=== PATIENT | male | born 1995 | race Caucasian/White ===

== ENCOUNTER 2019-09-14 10:26 | Emergency (ER) | payer OTHER ==
[2019-09-14 10:31] VITALS: BP 113/93; PULSE 67; RESP 18; TEMP 98.7
--- NOTE | 2019-09-14 10:45 | ED ---
Burn/Smoke HPI - General Chief complaint: Burn/Smoke Inhalation Stated complaint: [facility]-chemical burn Time Seen by Provider: 09/14/19 10:34 Source: patient Mode of arrival: ambulatory Limitations: no limitations - History of Present Illness Initial comments: Patient is a 23-year-old male presenting to the emergency department with a chief complaint of chemical exposure. 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 States he was not using any protective department when some splashed on bilateral forearms, mostly on the left forearm. Also reports similar going to his left eye. Denies any inhalation or ingestion of the chemical. She states he immediately washed his eye as well as the affected forearms. Denies any visual changes or pain. Denies any eye discomfort or pain with extraocular movements. States the burn on his hand is between a 1 and 2 on a scale of 10. - Related Data Allergies Allergy/AdvReac Type Severity Reaction Status Date / Time No Known Allergies Allergy Verified 09/14/19 10:31 Review of Systems ROS Statement: Those systems with pertinent positive or pertinent negative responses have been documented in the HPI. ROS Other: All systems not noted in ROS Statement are negative. Past Medical History Past Medical History: No Reported History History of Any Multi-Drug Resistant Organisms: None Reported Past Surgical History: No Surgical Hx Reported Past Psychological History: No Psychological Hx Reported Smoking Status: Never smoker Past Alcohol Use History: None Reported Past Drug Use History: None Reported General Exam Limitations: no limitations General appearance: alert, in no apparent distress Head exam: Present: atraumatic, normocephalic, normal inspection Eye exam: Present: normal appearance, PERRL, EOMI. Absent: other (with extraocular movements. Fluorescein stain reveals no uptake.) Pupils: Present: normal accommodation ENT exam: Present: normal exam, normal oropharynx, mucous membranes moist Neck exam: Present: normal inspection, full ROM Respiratory exam: Present: normal lung sounds bilaterally Cardiovascular Exam: Present: regular rate, normal rhythm, normal heart sounds Extremities exam: Present: full ROM, normal capillary refill, other (+2 ulnar and radial pulses bilaterally.). Absent: normal inspection (Less then 1 percent of total surface area burn on the left forearm. Only mild region measuring approximately 2 cm diameter on the right forearm. His appears to be a first- degree burn. Does not go across flexor or extensor surfaces.) Back exam: Present: normal inspection, full ROM Neurological exam: Present: alert, oriented X3 Psychiatric exam: Present: normal affect, normal mood Skin exam: Present: warm, dry, intact, normal color Course Vital Signs 09/14/19 10:27 Temperature 98.7 F Pulse Rate 67 Respiratory 18 Rate Blood Pressure 113/93 O2 Sat by Pulse 97 Oximetry Medical Decision Making - Medical Decision Making Patient is a 23-year-old male presenting to emergency Department for chief complaint of a chemical burn. Chin was pumping performance consultant/soap into the finger tender when some of it splashed on his hands and in his left eye. Patient extensively washed both the eye and his forearms. States the pain on his skin is about 1-2. On exam this appears to be less than 1% total body surface area. This appears to be first-degree superficial burn. Fluorescein stain of bilateral eyes reveals no uptake or signs of ocular injury. Patient was to follow up with primary care. Return parameters thoroughly discussed with physi jeffrey is in standing and agreeable. Case discussed with physician. Disposition Clinical Impression: Chemical burn Disposition: HOME SELF-CARE Condition: Stable Instructions (If sedation given, give patient instructions): Chemical Skin Burn (ED) Additional Instructions: Follow-up with her primary care. Return to emergency department if symptoms worsen. Is patient prescribed a controlled substance at d/c from ED?: No Referrals: None,Stated [Primary Care Provider] - 1-2 days Time of Disposition: 11:33
[2019-09-14] MEDS ORDERED: PROPARACAINE 0.5% OPHTH DROPS 15 ML BTL RIGHT EYE STA (10:49)
[2019-09-14] MEDS: FLUORESCEIN STRIPS 1 MG STRIP BOTH EYES ONE ×2 (11:18→11:19)
== END 2019-09-14 11:54 | disposition home or self-care (01) ==
LOC: EC 10:26
DX: T22.512A Corrosion of first degree of left forearm, initial encounter (principal); T22.511A Corrosion of first degree of right forearm, initial encounter; T26.92XA Corrosion of left eye and adnexa, part unspecified, initial encounter; T55 Toxic effect of soaps and detergents; T32.0 Corrosions involving less than 10% of body surface; Y92.69 Other specified industrial and construction area as the place of occurrence of the external cause; Y99.0 Civilian activity done for income or pay
CPT/HCPCS: 99283

== ENCOUNTER → 2019-10-27 | Outpatient (CLI) | payer MEDICAID | END | disposition home or self-care (01) | LOC: LABWHC1 08:18 | PROVIDERS: ATTEND Pediatrics Pediatric Infectious Diseases | DX: Z11.59 Encounter for screening for other viral diseases (principal) ==

== ENCOUNTER → 2019-10-30 | Outpatient (CLI) | payer MEDICAID | END | disposition home or self-care (01) | LOC: LABWHC1 08:25 | PROVIDERS: ATTEND Pediatrics Pediatric Infectious Diseases | DX: Z53.9 Procedure and treatment not carried out, unspecified reason (principal) ==

== ENCOUNTER 2021-03-28 16:18 | Emergency (ER) | payer OTHER ==
[2021-03-28 17:17] VITALS: BP 142/87; PULSE 96; RESP 20; TEMP 98.5
--- NOTE | 2021-03-28 18:10 | XR ---
EXAMINATION TYPE: XR shoulder complete RT DATE OF EXAM: 03/28/2021 COMPARISON: NONE HISTORY: Fall. Pain TECHNIQUE: 3 views FINDINGS: The glenohumeral joint is intact. I see no fracture nor dislocation. AC joint is intact. IMPRESSION: Negative right shoulder exam. No fracture.
--- NOTE | 2021-03-28 19:12 | XR ---
EXAMINATION TYPE: XR elbow complete RT DATE OF EXAM: 03/28/2021 COMPARISON: NONE HISTORY: Pain TECHNIQUE: 3 views FINDINGS: I see no fracture nor dislocation. Joint spaces are normal. There is no sign of elbow joint effusion. IMPRESSION: Negative right elbow exam. No fracture.
--- NOTE | 2021-03-28 19:24 | ED ---
General Adult HPI - General Chief complaint: Extremity Injury, Upper Stated complaint: shoulder pain Time Seen by Provider: 03/28/21 18:47 Source: patient Mode of arrival: ambulatory Limitations: no limitations - History of Present Illness Initial comments: 25-year-old male patient presents to the emergency department for evaluation of right shoulder and right elbow pain after soap and fall accident 3 days ago. Patient states he has been having pain to the arm since landing on it during the fall. States he felt like he had his funny bone in his elbow and he keeps feeling that same sensation with certain movements. He states his shoulder feels stiff and painful. Denies difficulty with range of motion. Denies numbness or tingling to the hand or fingers. Denies taking any medication for his pain. Denies hitting his head or losing consciousness during the fall. Denies any neck or back pain. Denies any other injuries. - Related Data Previous Rx's Medication Instructions Recorded Ibuprofen [Motrin] 600 mg PO Q8HR PRN #30 tab 03/28/21 Allergies Allergy/AdvReac Type Severity Reaction Status Date / Time No Known Allergies Allergy Verified 03/28/21 17:15 Review of Systems ROS Statement: Those systems with pertinent positive or pertinent negative responses have been documented in the HPI. ROS Other: All systems not noted in ROS Statement are negative. Past Medical History Past Medical History: No Reported History History of Any Multi-Drug Resistant Organisms: None Reported Past Surgical History: No Surgical Hx Reported Past Psychological History: No Psychological Hx Reported Smoking Status: Current some day smoker Past Alcohol Use History: None Reported Past Drug Use History: None Reported General Exam Limitations: no limitations General appearance: alert, in no apparent distress, other (This is a well- developed, well-nourished adult male patient in no acute distress.) Neck exam: Present: normal inspection, full ROM. Absent: tenderness, meningismus, lymphadenopathy Respiratory exam: Present: normal lung sounds bilaterally. Absent: respiratory distress, wheezes, rales, rhonchi, stridor Cardiovascular Exam: Present: regular rate, normal rhythm, normal heart sounds. Absent: systolic murmur, diastolic murmur, rubs, gallop, clicks Extremities exam: Present: full ROM, normal capillary refill, other (Skin to the right arm is pink, warm, dry. Cap refill less than 3 seconds. Full range of motion noted to the right shoulder and right elbow. Radial, ulnar, median nerve is intact.). Absent: tenderness, pedal edema, joint swelling, calf tenderness Back exam: Present: normal inspection. Absent: vertebral tenderness Neurological exam: Present: alert, oriented X3, CN II-XII intact Psychiatric exam: Present: normal affect, normal mood Skin exam: Present: warm, dry, intact, normal color. Absent: rash Course Vital Signs 03/28/21 17:15 Temperature 98.5 F Pulse Rate 96 Respiratory 20 Rate Blood Pressure 142/87 O2 Sat by Pulse 97 Oximetry Medical Decision Making - Medical Decision Making 25-year-old male patient presents to the emergency department today for evaluation of right elbow and right shoulder pain after a fall 3 days ago. Physical examination was unremarkable. Exhibited full range of motion and good neurovascular status. X-rays of the right elbow and right shoulder were obtained and were negative. He is given prescription for ibuprofen. Instructed to follow-up with the primary care physician for recheck as soon as possible. Instructed to follow-up with orthopedics of his symptoms are not improved after 1 week. Return parameters were discussed in detail. He verbalizes understanding and agrees with this plan. My attending is Dr. Griffin. - Radiology Data Radiology results: report reviewed, image reviewed 3 views of the right shoulder obtained. Report was reviewed in its entirety. Impression by Dr. Zurita shows negative right shoulder exam. No fracture. 3 views of the right elbow are obtained. Report was reviewed in its entirety. Impression by Dr. Zurita shows negative right elbow exam. No fracture. Disposition Clinical Impression: Strain of right elbow and forearm Disposition: HOME SELF-CARE Condition: Good Instructions (If sedation given, give patient instructions): Elbow Sprain (ED) Additional Instructions: Take medication as directed. Rest arm. Follow-up with your primary care physician for recheck in 1-2 days. Follow up with orthopedics if symptoms are not improved after 1 week. Return for any new, worsening, or concerning symptoms. Prescriptions: Ibuprofen [Motrin] 600 mg PO Q8HR PRN #30 tab PRN Reason: Pain Is patient prescribed a controlled substance at d/c from ED?: No Referrals: Willy Harper DO [Primary Care Provider] - 1-2 days Time of Disposition: 19:24
== END 2021-03-28 19:27 | disposition home or self-care (01) ==
LOC: EC 16:18
DX: S53.401A Unspecified sprain of right elbow, initial encounter (principal); S56.911A Strain of unspecified muscles, fascia and tendons at forearm level, right arm, initial encounter; F17.200 Nicotine dependence, unspecified, uncomplicated; W19.XXXA Unspecified fall, initial encounter
CPT/HCPCS: 99283